=== PATIENT | male | born 1970 | race Hispanic/Latino ===

== ENCOUNTER 2017-01-05 16:03 | Emergency (ER) | payer OTHER ==
[~2017-01-05] VITALS: Ht 170.2 cm; Wt 65.3 kg
[2017-01-05 16:09] VITALS: BP 134/98
== END 2017-01-05 17:21 ==
LOC: EME 16:03
DX: S61.412A Laceration without foreign body of left hand, initial encounter (principal); X78.9XXA Intentional self-harm by unspecified sharp object, initial encounter; Y92.149 Unspecified place in prison as the place of occurrence of the external cause; Y99.8 Other external cause status
CPT/HCPCS: 99281; 99284

== ENCOUNTER 2017-09-04 03:48 | Emergency (ER) | payer OTHER ==
[~2017-09-04] VITALS: Ht 162.6 cm; Wt 64.1 kg
[2017-09-04 04:36] LABS: BASOPHIL (%) 0.1 % (0-1); EOSINOPHIL (%) 0 % (0-5); HEMATOCRIT 43.6 % (38.0-50.0); HEMOGLOBIN 15.4 G/DL (12.5-16.6); IMMATURE GRANULOCYTE (%) 0.4 % (0.0-0.7); LYMPHOCYTE (%) 7.3 % (15-42); MCH 28.5 PG (29.0-34.0); MCHC 35.3 G/DL (30.0-36.0); MCV 80.6 FL (86-99); MONOCYTE (%) 3.2 % (3-12); MONOCYTE COUNT 0.4 K/uL (0-0.8); NEUTROPHIL COUNT 11.5 K/uL (1.8-6.4); PLATELET COUNT 274 K/uL (156-360); RBC DIS.WIDTH-CV 12.4 % (11.8-14.6); RED BLOOD COUNT 5.41 M/uL (4.00-5.50); WHITE BLOOD COUNT 12.9 K/uL (4.1-10.2)
[2017-09-04 04:55] LABS: ALBUMIN 4.6 g/dL (3.2-4.8); CHLORIDE 110 mEq/L (99-109); POTASSIUM 3.4 mEq/L (3.7-5.4); SODIUM 140 mEq/L (136-147)
[2017-09-04 04:57] LABS: GLUCOSE 150 mg/dL (70-99)
[2017-09-04 04:58] LABS: TOTAL PROTEIN 7.6 g/dL (6.4-8.3)
[2017-09-04 04:59] LABS: TOTAL BILIRUBIN 0.9 mg/dL (0.0-1.0)
[2017-09-04 05:01] LABS: ALKALINE PHOSPHATASE 57 IU/L (3-129); CREATININE 0.9 mg/dL (0.6-1.3); GFR ESTIMATE (CALCULATED) > 59 mL/min/ (58.99-99999)
[2017-09-04 05:02] LABS: UREA NITROGEN (BUN) 6 mg/dL (9-23)
[2017-09-04 05:03] LABS: AST (GOT) 16 IU/L (2-34)
[2017-09-04 05:04] LABS: ALT (GPT) 11 IU/L (3-49); LIPASE 16 U/L (1.0-51.0)
[2017-09-04] MEDS ORDERED: ZANTAC150 MG PO (05:51)
[2017-09-04 06:13] VITALS: BP 106/72
== END 2017-09-04 06:14 | disposition home or self-care (01) ==
LOC: EME 03:48
PROVIDERS: Emergency Medicine
DX: R10.13 Epigastric pain (principal); R11.2 Nausea with vomiting, unspecified
CPT/HCPCS: 80053; 83690; 85025; 99281; 99284; J2405; J7030